=== PATIENT | female | born 1995 | race Two or more races ===

== ENCOUNTER → 2024-12-16 | Emergency (ER) | payer OTHER ==
[~2024-12-16] VITALS: Ht 167.6 cm; Wt 68.0 kg
[~2024-12-16] MED LIST: ACETAMINOPHEN 500 MG GEL..CAP PO ONE; ACETAMINOPHEN 500 MG GEL..CAP PO STA; AMOXICILLIN500 MG PO; CORTISPORIN EAR10 M1 OTIC; LIDOCAINE HCL 4% Topic SOLUTION ONE; LIDOCAINE HCL 50 ML BOTT TOP STA; SWIM EAR DRO29.57 ML OT
== END | disposition home or self-care (01) ==
LOC: ER 20:04
DX: H60.93 Unspecified otitis externa, bilateral (principal); H66.93 Otitis media, unspecified, bilateral; Z3A.12 12 weeks gestation of pregnancy

== ENCOUNTER 2025-01-29 19:28 | Emergency (ER) | payer OTHER ==
[~2025-01-29] VITALS: Ht 162.6 cm; Wt 99.8 kg
[~2025-01-29 19:28] MED LIST changes: -ACETAMINOPHEN 500 MG GEL..CAP PO ONE; -ACETAMINOPHEN 500 MG GEL..CAP PO STA; -LIDOCAINE HCL 4% Topic SOLUTION ONE; -LIDOCAINE HCL 50 ML BOTT TOP STA
[2025-01-29] MEDS ORDERED: PRENATAL + DHA1 EAC1 PO (19:49)
[2025-01-29 21:21] LABS: PH,URINE 5.5 (5.0-8.0); URINE APPEARANCE Clear; URINE BILIRRUBIN Negative (NEGATIVE); URINE BLOOD Negative; URINE COLOR Yellow; URINE GLUCOSE Negative (NEGATIVE); URINE KETONE Negative (NEGATIVE); URINE LEUKOCYTE Negative; URINE NITRATE Negative; URINE PROTEIN Negative (NEGATIVE); URINE UROBILINOGEN 0.2 E.U./dl
[2025-01-29 21:25] LABS: URINE BACTERIA 363.4 uL (0.0-1933); URINE EPITHELIAL CELLS 12.3 uL (0.0-38.8); URINE RBC 4.1 uL (0.0-20.8); URINE WBC 5.5 uL (0.0-23.2)
== END 2025-01-29 22:45 | disposition home or self-care (01) ==
LOC: ER 20:41
PROVIDERS: General Practice
DX: O26.892 Other specified pregnancy related conditions, second trimester (principal); Z3A.18 18 weeks gestation of pregnancy; T14.90XA Injury, unspecified, initial encounter; V49.9XXA Car occupant (driver) (passenger) injured in unspecified traffic accident, initial encounter; Y93.89 Activity, other specified; Y92.413 State road as the place of occurrence of the external cause; Y99.9 Unspecified external cause status

== ENCOUNTER 2025-03-08 12:44 | Emergency (ER) | payer OTHER ==
[~2025-03-08] VITALS: Ht 162.6 cm; Wt 98.0 kg
[~2025-03-08 12:44] MED LIST changes: +PRENATAL + DHA1 EAC1 PO
[2025-03-08 14:27] LABS: BASO % 0.2 % (0.1-1.2); EOS # 0.07 (0.04-0.54); EOS % 0.7 % (0.7-7.0); LYMPH # 2.16 (1.18-3.74); LYMPH % 21.2 % (19.3-53.1); MEAN PLATELET VOLUME 10.20 fl (9.4-12.4); MONO # 0.71 (0.24-0.82); MONO % 7.0 % (4.7-12.5); NEUT # 7.19 (1.56-6.13); NEUT % 70.5 % (34.0-71.1); RED CELL DISTRIBUTION WIDTH 12.7 % (11.6-14.4)
[2025-03-08 15:26] LABS: URINE APPEARANCE Clear; URINE BILIRRUBIN Negative (NEGATIVE); URINE BLOOD Negative; URINE COLOR Yellow; URINE GLUCOSE Negative (NEGATIVE); URINE KETONE 15 (NEGATIVE); URINE LEUKOCYTE Trace; URINE NITRATE Negative; URINE PROTEIN Negative (NEGATIVE); URINE UROBILINOGEN 0.2 E.U./dl
[2025-03-08 15:30] LABS: URINE BACTERIA 201.6 uL (0.0-1933); URINE EPITHELIAL CELLS 11.0 uL (0.0-38.8); URINE WBC 12.4 uL (0.0-23.2)
[2025-03-08 15:52] LABS: URINE CAST 0.00 uL (0.0-1.40); URINE RBC 1.4 uL (0.0-20.8)
== END 2025-03-08 17:32 | disposition home or self-care (01) ==
LOC: ER 12:44
PROVIDERS: Emergency Medicine
DX: Z34.90 Encounter for supervision of normal pregnancy, unspecified, unspecified trimester (principal); Z3A.24 24 weeks gestation of pregnancy; F32.A Depression, unspecified; F41.9 Anxiety disorder, unspecified

== ENCOUNTER 2025-06-21 16:18 | Outpatient (CLI) | payer OTHER ==
[~2025-06-21] VITALS: Ht 162.6 cm; Wt 115.7 kg
[2025-06-21 15:00] VITALS: BP 110/73; O2SAT 99
[2025-06-21 16:38] LABS: BASO % 0.1 % (0.1-1.2); EOS # 0.02 (0.04-0.54); EOS % 0.3 % (0.7-7.0); LYMPH # 2.00 (1.18-3.74); LYMPH % 29.5 % (19.3-53.1); MEAN PLATELET VOLUME 11.50 fl (9.4-12.4); MONO # 0.65 (0.24-0.82); MONO % 9.6 % (4.7-12.5); NEUT # 4.06 (1.56-6.13); NEUT % 60.1 % (34.0-71.1); RED CELL DISTRIBUTION WIDTH 12.9 % (11.6-14.4)
[2025-06-21 16:39] LABS: URINE APPEARANCE Clear; URINE BILIRRUBIN Negative (NEGATIVE); URINE BLOOD Negative; URINE COLOR Yellow; URINE GLUCOSE Negative (NEGATIVE); URINE KETONE Negative (NEGATIVE); URINE LEUKOCYTE Trace; URINE NITRATE Negative; URINE PROTEIN Trace (NEGATIVE); URINE UROBILINOGEN 1.0 E.U./dl
[2025-06-21 16:40] LABS: URINE EPITHELIAL CELLS 81.3 uL (0.0-38.8); URINE RBC 6.7 uL (0.0-20.8); URINE WBC 94.7 uL (0.0-23.2)
[2025-06-21] MEDS ORDERED: RINGERS SOLUTION,LACTATED 1,000 ML IV SCH (16:45)
[2025-06-21 16:59] LABS: INR < 0.93
[2025-06-21 17:05] LABS: ALT/SGPT 27.0 U/L (12-78); AST/SGOT 22.0 U/L (15-37); BILIRUBIN TOTAL 0.22 mg/dL (0.3-1.2); BUN CREA RATIO 15.0 (7.0-25.0); CREATININE SERUM 0.66 mg/dL (0.55-1.02); GFR 105.15; GLOBULINA 3.1 G/DL (2.4-3.5); GLUCOSE FASTING 88.0 mg/dL (65-100); OSMOLALITY SERUM 283.0 MOSM/KG (275-295)
[2025-06-21 17:24] LABS: URINE CAST 0.43 uL (0.0-1.40)
[2025-06-21] MEDS ORDERED: CEFAZOLIN SODIUM 1,000 MG VIAL IV SCH (18:44)
[2025-06-21 19:40] VITALS: BP 106/63
[2025-06-21 23:36] VITALS: BP 105/65
[2025-06-22 03:57] VITALS: BP 106/67
[2025-06-22 07:27] VITALS: BP 126/82
[2025-06-22 11:39] VITALS: BP 117/75; BP 129/82
[2025-06-22 15:40] VITALS: BP 123/83
[2025-06-22 17:53] VITALS: BP 123/83
== END 2025-06-22 17:53 | disposition home or self-care (01) ==
LOC: OBS/DEL 16:18
PROVIDERS: ATTEND Specialist
DX: O36.8130 Decreased fetal movements, third trimester, not applicable or unspecified (principal); O26.849 Uterine size-date discrepancy, unspecified trimester; Z3A.39 39 weeks gestation of pregnancy

== ENCOUNTER 2025-06-27 04:31 | Inpatient (IN) | payer OTHER ==
[~2025-06-27] VITALS: Ht 162.6 cm; Wt 3.6 kg
[2025-06-27 04:56] VITALS: BP 130/84
[2025-06-27] MEDS ORDERED: OXYTOCIN 500 ML IV SCH (05:15)
[2025-06-27 05:56] LABS: URINE APPEARANCE Clear; URINE BILIRRUBIN Negative (NEGATIVE); URINE BLOOD Trace; URINE COLOR Yellow; URINE GLUCOSE Negative (NEGATIVE); URINE KETONE Negative (NEGATIVE); URINE LEUKOCYTE Negative; URINE NITRATE Negative; URINE UROBILINOGEN 0.2 E.U./dl
[2025-06-27 06:00] LABS: URINE BACTERIA 126.0 uL (0.0-1933); URINE EPITHELIAL CELLS 19.8 uL (0.0-38.8); URINE RBC 11.5 uL (0.0-20.8); URINE WBC 7.8 uL (0.0-23.2)
[2025-06-27 06:07] LABS: URINE CAST 1.31 uL (0.0-1.40); URINE PROTEIN 100 (NEGATIVE)
[2025-06-27 06:16] LABS: BASO % 0.3 % (0.1-1.2); EOS # 0.03 (0.04-0.54); EOS % 0.4 % (0.7-7.0); LYMPH # 2.25 (1.18-3.74); LYMPH % 28.2 % (19.3-53.1); MEAN PLATELET VOLUME 11.40 fl (9.4-12.4); MONO # 0.68 (0.24-0.82); MONO % 8.5 % (4.7-12.5); NEUT # 4.97 (1.56-6.13); NEUT % 62.3 % (34.0-71.1); RED CELL DISTRIBUTION WIDTH 12.8 % (11.6-14.4)
[2025-06-27 06:38] LABS: ALT/SGPT 32.0 U/L (12-78); AST/SGOT 26.0 U/L (15-37); BILIRUBIN TOTAL 0.23 mg/dL (0.3-1.2); BUN CREA RATIO 13.0 (7.0-25.0); CREATININE SERUM 0.62 mg/dL (0.55-1.02); GFR 113.02; GLOBULINA 3.6 G/DL (2.4-3.5); GLUCOSE FASTING 108.0 mg/dL (65-100); OSMOLALITY SERUM 282.0 MOSM/KG (275-295)
[2025-06-27 06:48] LABS: INR < 0.93
[2025-06-27 07:25] VITALS: BP 129/79
[2025-06-27 11:15] VITALS: BP 145/75
[2025-06-27] MEDS ORDERED: MORPHINE SULFATE 4 MG/ML CARTRIDGE IV ONE (11:30)
[2025-06-27 15:44] VITALS: BP 146/82
[2025-06-27] MEDS ORDERED: KETOROLAC TROMETHAMINE 60 MG VIAL IM ONE ×2 (21:00→22:00)
[2025-06-27] MEDS ORDERED: MORPHINE SULFATE 4 MG/ML CARTRIDGE IV SCH (21:00)
[2025-06-27] MEDS ORDERED: ERYTHROMYCIN BASE OPHT 1GM EACH TUBE OP ONE (21:30)
[2025-06-27] MEDS ORDERED: CEFAZOLIN SODIUM 1,000 MG VIAL IV ONE (21:30)
[2025-06-27] MEDS ORDERED: OXYTOCIN 10 UNITS/ML VIAL IV ONE (21:30)
[2025-06-27 22:47] VITALS: BP 135/81
[2025-06-28 00:31] VITALS: BP 112/63
[2025-06-28 03:33] LABS: BASO % 0.1 % (0.1-1.2); EOS # 0.01 (0.04-0.54); EOS % 0.1 % (0.7-7.0); LYMPH # 1.70 (1.18-3.74); LYMPH % 18.3 % (19.3-53.1); MEAN PLATELET VOLUME 11.60 fl (9.4-12.4); MONO # 0.85 (0.24-0.82); MONO % 9.1 % (4.7-12.5); NEUT # 6.69 (1.56-6.13); NEUT % 72.0 % (34.0-71.1); RED CELL DISTRIBUTION WIDTH 12.7 % (11.6-14.4)
[2025-06-28] MEDS ORDERED: ACETAMINOPHEN 325 MG TABLET PO SCH ×2 (07:00)
[2025-06-28] MEDS ORDERED: OxyCODONE HCL 5 MG TABLET (ROXICODONE) PO SCH ×2 (07:00→14:00)
[2025-06-28] MEDS ORDERED: ENOXAPARIN SODIUM 40 MG/0.4 ML SYRINGE SUBCUTANEO NR (08:00)
[2025-06-28 08:34] VITALS: BP 101/66
[2025-06-28] MEDS ORDERED: DOCUSATE SODIUM 100MG CAP PO SCH (09:00)
[2025-06-28] MEDS ORDERED: SIMETHICONE 125 MG CAPSULE PO SCH (09:00)
[2025-06-28] MEDS ORDERED: MEASLES,MUMPS,RUBELLA VACC/PF 1 VIAL VIAL SUBCUTANEO NR (11:45)
[2025-06-28] MEDS ORDERED: IRON FUM,PS/FOLIC/BCOMP,C NO.9 1 CAP CAPSULE PO NR (12:00)
[2025-06-28 13:04] VITALS: BP 140/83
[2025-06-28 16:00] VITALS: BP 114/67
[2025-06-28] MEDS ORDERED: ACETAMINOPHEN 500 MG GEL..CAP PO SCH (18:39)
[2025-06-29 00:57] VITALS: BP 122/83
[2025-06-29 08:27] VITALS: BP 128/81
[2025-06-29] MEDS ORDERED: IRON FUM,PS/FOLIC/BCOMP,C NO.9 1 CAP CAPSULE PO SCH (09:00)
[2025-06-29 16:00] VITALS: BP 135/80
[2025-06-30 03:24] VITALS: BP 129/85
[2025-06-30 08:00] VITALS: BP 131/79
[2025-06-30] MEDS ORDERED: IBU800 MG PO (16:24)
[2025-06-30] MEDS ORDERED: SENOKOT-S TABL1 EACH PO (16:25)
[2025-06-30] MEDS ORDERED: SIMETHICONE125 M1 PO (16:26)
[2025-06-30] MEDS ORDERED: FUSION PLUS CA1 EACH PO (16:26)
== END 2025-06-30 16:50 | disposition home or self-care (01) | DRG 787 ==
LOC: LDR 04:31 → OB/GYN 04:31
PROVIDERS: ADMIT Specialist; ATTEND Specialist
PROC: 4A1HXCZ Monitoring of Products of Conception, Cardiac Rate, External Approach (ICD-10-PCS; 2025-06-27)
PROC: 10D00Z1 Extraction of Products of Conception, Low, Open Approach (ICD-10-PCS; principal; 2025-06-27 19:00)
DX: O82 Encounter for cesarean delivery without indication (principal); O62.1 Secondary uterine inertia; Z68.41 Body mass index [BMI] 40.0-44.9, adult; O36.8130 Decreased fetal movements, third trimester, not applicable or unspecified; Z3A.40 40 weeks gestation of pregnancy; O34.13 Maternal care for benign tumor of corpus uteri, third trimester; D25.9 Leiomyoma of uterus, unspecified; O99.214 Obesity complicating childbirth; E66.9 Obesity, unspecified; E66.813 Obesity, class 3; Z37.0 Single live birth